=== PATIENT | female | born 1975 | race Caucasian/White ===

== ENCOUNTER 2017-04-23 11:59 | Emergency (ER) | payer OTHER, BC ==
[~2017-04-23 11:59] MED LIST: DEPO150I IM
[2017-04-23 12:43] VITALS: BP 134/83; PULSE 97; RESP 15; TEMP 98.7; O2SAT 96
[2017-04-23 13:29] LABS: AUTOMATED NEUTROPHIL # 3.8 TH/MM3 (1.8-7.7); BASOPHIL % 0.5 % (0.0-2.0); EOSINOPHIL # 0.1 TH/MM3 (0-0.4); EOSINOPHIL % 1.9 % (0.0-4.0); HEMATOCRIT 34.5 % (35.0-46.0); HEMOGLOBIN 11.5 GM/DL (11.6-15.3); LYMPH % 24.8 % (9.0-44.0); LYMPHOCYTE # 1.4 TH/MM3 (1.0-4.8); MEAN CORPUSCULAR HEMOGLOBIN 27.6 PG (27.0-34.0); MEAN CORPUSCULAR HGB CONC 33.3 % (32.0-36.0); MEAN PLATELET VOLUME 7.6 FL (7.0-11.0); MONO % 6.5 % (0.0-8.0); MONOCYTE # 0.4 TH/MM3 (0-0.9); NEUT % 66.3 % (16.0-70.0); PLATELET COUNT 298 TH/MM3 (150-450); RED BLOOD COUNT 4.16 MIL/MM3 (4.00-5.30); RED CELL DISTRIBUTION WIDTH 15.1 % (11.6-17.2); WHITE BLOOD COUNT 5.7 TH/MM3 (4.0-11.0)
[2017-04-23 13:47] LABS: ALBUMIN 3.7 GM/DL (3.4-5.0); AST (GOT) 33 U/L (15-37); BICARBONATE 25.9 MEQ/L (21.0-32.0); BLOOD UREA NITROGEN 4 MG/DL (7-18); CALCIUM 8.6 MG/DL (8.5-10.1); CHLORIDE 105 MEQ/L (98-107); CREATININE 0.58 MG/DL (0.50-1.00); GLOMERULAR FILTRATION RATE 114 ML/MIN (>89); GLUCOSE,RANDOM 93 MG/DL (74-106); SODIUM (NA) 139 MEQ/L (136-145)
[2017-04-23 13:48] LABS: ALT (GPT) 33 U/L (10-53)
[2017-04-23 13:50] LABS: ALKALINE PHOSPHATASE 62 U/L (45-117); TOTAL BILIRUBIN ADULT 0.3 MG/DL (0.2-1.0); TOTAL PROTEIN 7.6 GM/DL (6.4-8.2)
[2017-04-23] MEDS ORDERED: SERT-129 PO (13:50)
[2017-04-23] MEDS ORDERED: LEVO.125 PO (13:50)
[2017-04-23 13:51] LABS: BACTERIA, URINE RARE /hpf; BILIRUBIN, URINE NEG (NEG); BLOOD, URINE NEG (NEG); GLUCOSE,URINE NEG (NEG); KETONE, URINE NEG (NEG); MUCUS URINE FEW /lpf (OCC); NITRITE,URINE NEG (NEG); SQUAMOUS EPITHELIAL CELL URINE 2 /hpf (0-5); URINE COLOR YELLOW (YELLW/STRAW); URINE LEUKOCYTE ESTERASE SMALL (NEG)
[2017-04-23] MEDS ORDERED: ALUMINUM/MAGNESIUM/SIMETH 30 ML CUP PO ONE (14:00)
[2017-04-23] MEDS ORDERED: POTASSIUM CHLORIDE 20 MEQ CONTROLLED RELEASE TAB PO ONE (14:00)
[2017-04-23] MEDS ORDERED: LIDOCAINE VISCOUS 2% SOLN 15 ML UDC PO ONE (14:00)
--- NOTE | 2017-04-23 14:04 | PD ---
HPI Chief Complaint: Cold / Flu Symptoms Time Seen by Provider: 13:39 Travel History International Travel<30 days: No Contact w/Intl Traveler<30days: No Traveled to known affect area: No History of Present Illness HPI 41-year-old female presents to the emergency room for evaluation of epigastric abdominal pain, right-sided neck pain, and malaise for the past 4 days. No objective fevers, sore throat, cough, or congestion. States she went to [facility] 4 days ago and was diagnosed with gastroenteritis. At that time she had nausea, vomiting, and diarrhea. She was discharged with cramping medication, Phenergan, and Zofran. She took 1 8 mg Zofran 3 days ago and it completely resolved her nausea and vomiting. She has been constipated for the past 3 days. She has epigastric abdominal pain that is unchanged from 4 days ago. Worse she flexes her abdomen or coughs. Denies any blood in her vomit or stool. Only history of hypothyroidism and depression. PFSH Past Medical History Depression: Yes Cancer: No Cardiovascular Problems: No Diabetes: No Diminished Hearing: No Hepatitis: No Hiatal Hernia: No Hypertension: No Medical other: Yes (ULCER A CHILD) Thyroid Disease: Yes (HYPO) Tetanus Vaccination: < 5 Years Influenza Vaccination: Yes ?: Not LMP: 04/16/17 Para: 2 Past Surgical History Abdominal Surgery: No Cardiac Surgery: No Ear Surgery: No Endocrine Surgery: No Eye Surgery: No Genitourinary Surgery: No Gynecologic Surgery: No Oral Surgery: No Pacemaker: No Thoracic Surgery: No Other Surgery: Yes (CYSTS REMOVED FROM HEAD, CHEST, BREAST) Social History Alcohol Use: Yes (OCCASIONALLY) Tobacco Use: No Substance Use: No Allergies-Medications (Allergen,Severity, Reaction): Coded Allergies: No Known Allergies (Verified , 12/29/13) Reported Meds & Prescriptions Reported Meds & Active Scripts Active Protonix (Pantoprazole Sodium) 40 Mg Tab 40 Mg PO DAILY Reported Sertraline (Sertraline HCl) 100 Mg Tab 200 Mg PO DAILY Synthroid (Levothyroxine Sodium) 125 Mcg Tab 125 Mcg PO DAILY Review of Systems Except as stated in HPI: all other systems reviewed are Neg Physical Exam Narrative GENERAL: Well-nourished, well-developed female no acute distress. Afebrile. Ambulatory. SKIN: Focused skin assessment warm/dry. HEAD: Normocephalic. EYES: No scleral icterus. No injection or drainage. NECK: Supple, trachea midline. No JVD or lymphadenopathy. CARDIOVASCULAR: Regular rate and rhythm without murmurs, gallops, or rubs. RESPIRATORY: Breath sounds equal bilaterally. No accessory muscle use. GASTROINTESTINAL: Abdomen soft, nondistended. Mild to moderate tenderness to palpation of the epigastric abdomen. NEUROLOGICAL: Awake and alert. Cranial nerves II through XII intact. Motor and sensory grossly within normal limits. Five out of 5 muscle strength in all muscle groups. Normal speech. Negative Brudzinski and Kernig signs. Data Data Last Documented VS Vital Signs Date Time Temp Pulse Resp B/P (MAP) Pulse Ox O2 Delivery O2 Flow Rate FiO2 04/23/17 13:44 97 18 98 Room Air 04/23/17 12:43 98.7 134/83 (100) Orders Orders Complete Blood Count With Diff (04/23/17 12:45) Comprehensive Metabolic Panel (04/23/17 12:45) Lipase (04/23/17 12:45) Urinalysis - C+S If Indicated (04/23/17 12:45) Ed Urine Pregnancytest Poc (04/23/17 12:45) Potassium Chloride (Kcl) (04/23/17 14:00) Abdomen, Flat & Upright (04/23/17 ) Al-Mag Hy-Si 40-40-4 Mg/Ml Liq (Mag-Al P (04/23/17 14:00) Lidocaine 2% Viscous (Xylocaine 2% Visco (04/23/17 14:00) Labs Laboratory Tests Test 04/23/17 12:55 White Blood Count 5.7 TH/MM3 Red Blood Count 4.16 MIL/MM3 Hemoglobin 11.5 GM/DL Hematocrit 34.5 % Mean Corpuscular Volume 83.0 FL Mean Corpuscular Hemoglobin 27.6 PG Mean Corpuscular Hemoglobin Concent 33.3 % Red Cell Distribution Width 15.1 % Platelet Count 298 TH/MM3 Mean Platelet Volume 7.6 FL Neutrophils (%) (Auto) 66.3 % Lymphocytes (%) (Auto) 24.8 % Monocytes (%) (Auto) 6.5 % Eosinophils (%) (Auto) 1.9 % Basophils (%) (Auto) 0.5 % Neutrophils # (Auto) 3.8 TH/MM3 Lymphocytes # (Auto) 1.4 TH/MM3 Monocytes # (Auto) 0.4 TH/MM3 Eosinophils # (Auto) 0.1 TH/MM3 Basophils # (Auto) 0.0 TH/MM3 CBC Comment DIFF FINAL Differential Comment Urine Color YELLOW Urine Turbidity CLEAR Urine pH 7.0 Urine Specific [place] 1.010 Urine Protein NEG mg/dL Urine Glucose (UA) NEG mg/dL Urine Ketones NEG mg/dL Urine Occult Blood NEG Urine Nitrite NEG Urine Bilirubin NEG Urine Urobilinogen LESS THAN 2.0 MG/DL Urine Leukocyte Esterase SMALL Urine RBC 1 /hpf Urine WBC 2 /hpf Urine Squamous Epithelial Cells 2 /hpf Urine Bacteria RARE /hpf Urine Mucus FEW /lpf Microscopic Urinalysis Comment CULT NOT INDICATED Blood Urea Nitrogen 4 MG/DL Creatinine 0.58 MG/DL Random Glucose 93 MG/DL Total Protein 7.6 GM/DL Albumin 3.7 GM/DL Calcium Level 8.6 MG/DL Alkaline Phosphatase 62 U/L Aspartate Amino Transf (AST/SGOT) 33 U/L Alanine Aminotransferase (ALT/SGPT) 33 U/L Total Bilirubin 0.3 MG/DL Sodium Level 139 MEQ/L Potassium Level 3.2 MEQ/L Chloride Level 105 MEQ/L Carbon Dioxide Level 25.9 MEQ/L Anion Gap 8 MEQ/L Estimat Glomerular Filtration Rate 114 ML/MIN Lipase 160 U/L MDM Medical Decision Making Medical Screen Exam Complete: Yes Emergency Medical Condition: Yes Medical Record Reviewed: Yes Differential Diagnosis GERD, PUD, gastroenteritis, pancreatitis, influenza Narrative Course 41-year-old female presents to the emergency room for evaluation of epigastric abdominal pain, right-sided neck pain, and malaise for the past 4 days. She was diagnosed with gastroenteritis 4 days ago but her nausea, vomiting, and diarrhea has subsided. No fevers. She is afebrile and well-appearing in the emergency room. There is mild tenderness to palpation of the epigastric region. CBC, CMP are unremarkable. Patient has mild hypokalemia that was replaced with oral potassium. Lipase is unremarkable. She had a CT abdomen pelvis 4 days ago that was unremarkable and a beta hCG 4 days ago that was not elevated. Urine test is negative. X-ray shows no evidence of obstruction or pneumoperitoneum. No air-fluid level seen. Given history and physical exam, I suspect GERD or PUD. Patient was told to follow-up with her primary care physician for referral to get an outpatient endoscopy. She will be discharged with prescription for pantoprazole. She had he has prescriptions for Phenergan, Zofran, and antispasmodic medication. Told to return for worsening symptoms. She understands and agrees to plan. Diagnosis Primary Impression: PUD (peptic ulcer disease) Referrals: Office Services Assistant Primary Care Physician Additional Instructions: Rest and drink plenty of fluids. Protonix as directed. Follow-up with a primary care physician. Return to the emergency room for worsening symptoms. Med/Other Pt SpecificInfo: Prescription(s) given Scripts Pantoprazole (Protonix) 40 Mg Tab 40 MG PO DAILY for Reflux, #30 TAB 0 Refills Prov: Ang Joel MD 04/23/17 Disposition: 01 DISCHARGE HOME Condition: Stable Joanna Solis Apr 23, 2017 14:04
[2017-04-23] MEDS ORDERED: PROT40TA PO (14:07)
--- NOTE | 2017-04-23 14:39 | RADRPT ---
EXAM DATE/TIME: 04/23/2017 14:06 [facility] COMPARISON: No previous studies available for comparison. INDICATIONS : Abdominal pain. MEDICAL HISTORY : None. SURGICAL HISTORY : None. ENCOUNTER: Initial ACUITY: 3 days PAIN SCORE: 9/10 LOCATION: Bilateral abdomen. FINDINGS: Supine and upright views of the abdomen were performed. The abdominal bowel gas pattern is normal. No air fluid levels are seen. No abnormal masses, calcifications, or organomegaly is seen. The visu alized lower lungs are clear. No evidence of free intraperitoneal gas. The osseous structures are u nremarkable. Number benign phleboliths in the deep pelvis. CONCLUSION: Radiographically benign abdomen without obstruction or pneumoperitoneum. Jorge Shore MD on April 23, 2017 at 14:38 Board Certified Radiologist. This report was verified electronically.
[2017-04-23] MEDS ORDERED: ROBA750T PO (15:50)
[2017-04-23] MEDS ORDERED: POTASSIUM CHLORIDE 20 MEQ PWD PACKET PO ONE (16:00)
[2017-04-24] MEDS ORDERED: POTASSIUM CHLORIDE 20 MEQ PWD PACKET PO SCH (09:00)
== END 2017-04-23 16:29 | disposition home or self-care (01) ==
LOC: NEPD 11:59
DX: K27.9 Peptic ulcer, site unspecified, unspecified as acute or chronic, without hemorrhage or perforation (principal); E03.9 Hypothyroidism, unspecified; F32.9 Major depressive disorder, single episode, unspecified
CPT/HCPCS: 74019; 80053; 81001; 83690; 84703; 85025; 99284